=== PATIENT | female | born 1985 | race American Indian/Alaskan Native ===

== ENCOUNTER 2017-10-26 10:49 | Day surgery (SDC) | payer BC ==
[2017-10-25 14:11] VITALS: BMI 25.9
[2017-10-26 11:31] VITALS: O2SAT 100
[2017-10-26] MEDS ORDERED: cefOXitin IV 1 gm in Dextrose 2 GM/100 ML BAG IVPB ONE (14:04)
[2017-10-26] MEDS ORDERED: Midazolam 2 MG/2 ML VIAL ONE (14:14)
[2017-10-26] MEDS ORDERED: Propofol 10 mg/ml Inj (20 ML) ONE (14:14)
[2017-10-26] MEDS ORDERED: HYDROmorphone 0.5 mg/0.5 ml ISec IVP PRN (15:12)
[2017-10-26 16:09] VITALS: BP 117/74; PULSE 74; RESP 18; TEMP 98
--- NOTE | 2017-11-01 11:30 | OP ---
PROCEDURE DATE: 10/26/2017 NATURE OF OPERATION: Dilatation and curettage, hysteroscopy and removal of impacted intrauterine device. OPERATING SURGEON: Eddie Dowell MD RN PACU: Dr. Chambers. KIND OF ANESTHESIA: General. PREOPERATIVE DIAGNOSIS: Impacted intrauterine device. POSTOPERATIVE DIAGNOSIS: Impacted intrauterine device. FINDINGS: On pelvic examination under anesthesia, the external genitalia was normal. Vagina was parous. The cervix shows multiple nabothian cysts with no intrauterine device. A string was visible and the uterus was top normal size and directed anteriorly and sounded to 3.5 inches in depth with a smooth cavity and a moderate amount of endometrial tissue obtained. DESCRIPTION OF PROCEDURE: Under general anesthesia, the patient in dorsal lithotomy position, she was prepped, draped, and catheterized in the usual sterile manner. A heavy weighted speculum was placed on the posterior vaginal vault and with the help of Faust speculum, the anterior lip of the cervix was grasped via tenaculum. The uterus was sounded and found to be anteverted to a depth of 3.5 inches. Serial dilatation of the cervix was done with Hanks dilator up to #18. Then, the hysteroscope was inserted and with sorbitol, the uterine cavity distended. The endometrial cavity was visualized showing the impacted intrauterine device. The hysteroscope was removed and further dilatation of the cervix was done with Hanks dilator up to #20. Then, using polyp forceps, the impacted IUD was grasped and pulled out. This was followed by sharp clockwise curettage of the endometrial cavity, which was productive of a moderate amount of polypoid tissue. The cavity was noted to be smooth, and the patient tolerated the procedure well and was sent to recovery room in satisfactory condition. Eddie Dowell MD
== END 2017-10-26 16:54 | disposition home or self-care (01) ==
LOC: C.SDS 10:49
PROVIDERS: ATTEND Obstetrics & Gynecology Gynecology
DX: T83.39XA Other mechanical complication of intrauterine contraceptive device, initial encounter (principal); R10.30 Lower abdominal pain, unspecified; N92.6 Irregular menstruation, unspecified; N91.2 Amenorrhea, unspecified; N88.8 Other specified noninflammatory disorders of cervix uteri; J45.909 Unspecified asthma, uncomplicated; G43.909 Migraine, unspecified, not intractable, without status migrainosus
CPT/HCPCS: 58301; 58558; 88305; J0694; J1100; J2001; J2250; J2405; J2704; J3010